=== PATIENT | male | born 1990 | race Caucasian/White ===

== ENCOUNTER 2017-10-23 22:30 | Emergency (ER) | payer SELFPAY ==
[~2017-10-23] VITALS: Ht 177.8 cm; Wt 63.9 kg
[2017-10-23 22:33] VITALS: BP 152/96
[2017-10-23] MEDS ORDERED: LIDOCAINE 1%, 20ML ONE (22:54)
[2017-10-23] MEDS ORDERED: BUPIVACAINE 0.25% ONE (22:54)
[2017-10-23] MEDS ORDERED: LIDOCAINE 1%, 20ML SQ ONE (23:00)
[2017-10-23] MEDS ORDERED: BUPIVACAINE 0.25% INFIL ONE (23:00)
== END 2017-10-24 00:11 | disposition home or self-care (01) ==
LOC: ED 23:35
DX: L03.012 Cellulitis of left finger (principal); F17.210 Nicotine dependence, cigarettes, uncomplicated
CPT/HCPCS: 64450; 99284